=== PATIENT | male | born 1955 | race Caucasian/White ===

== ENCOUNTER 2016-08-04 08:01 | Inpatient (IN) ==
--- NOTE | 2016-08-01 21:45 | Discharge Summary ---
<Sofie Jeong - Last Filed: 08/01/16 21:42> Date of Encounter: 08/01/16 - Discharge Diagnosis (1) Arthritis of knee, left Priority: Primary Status: Acute (2) HTN (hypertension) Priority: Secondary Status: Chronic Qualifiers: Hypertension type: essential hypertension Qualified Code(s): I10 - Essential (primary) hypertension (3) Tobacco dependence Priority: Secondary Status: Chronic - Discharge Medications Home Medications: Diltiazem HCl [Diltiazem 24Hr Cd] 240 mg PO DAILY 04/22/16 [History] Meloxicam [Mobic] 7.5 mg PO DAILY 04/22/16 [History] Aspirin Enteric Coated [Aspirin EC] 325 mg PO DAILY #21 tablet. 08/01/16 [Rx] OxyCODONE Immed Rel [Roxicodone 5 MG] 5 - 10 mg PO Q6HR PRN #40 tablet 08/01/16 [Rx] Allergies/Adverse Reactions: Allergies Erythromycin Base [From Erythrocin] Allergy (Verified 04/22/16 09:51) See Comments lack of therapy Primary care physician: Kj Lindsey MD - Patient Status Disposition: Home, Self-Care Condition: Good - Discharge Instructions Follow Up With: Kj Lindsey MD [Primary Care Provider] - - Hospital Course Hospital course: Mr. Tolentino is a 60 year old male - Time Spent with Patient Total time spent providing and/or coordinating discharge services: <Zi Mann - Last Filed: 08/05/16 09:57> Date of Encounter: 08/05/16 Time of Encounter: 09:57 Labs on day of discharge: Labs from last 24 hours 08/05/16 08/05/16 08/04/16 04:15 04:15 12:45 Hgb 12.2 L D 14.2 D Hct 35.5 L 41.8 Sodium 135 L Potassium 4.3 Chloride 100 Carbon Dioxide 27 BUN 11 Creatinine 0.69 L Est GFR ( Amer) > 60 Est GFR (Non-Af Amer) > 60 BUN/Creatinine Ratio 16 Glucose 179 H Calculated Osmolality 284 Calcium 9.1 - Impressions ITS Impressions Knee X-Ray 08/04/16 00:01 IMPRESSION: 1. Left knee arthroplasty with no immediate complications. D/ / Perez Chiang MD / Perez Chiang MD Interpreting Provider: Perez Chiang MD Date of admission: 08/04/16 13:25 Primary care physician: Kj Lindsey MD Consults: 08/04/16 13:32 Consult to Occupational Therapy [CONS] Routine Comment: Evaluate, develop and implement POC Reason for Consult: post knee surgery Consult to Orthopedic Navigator [CONS] [CONS] Routine Consult to Physical Therapy [CONS] Routine Comment: Evaluate, develop and impliment POC Reason for Consult: post knee surgery Consult to Ultrasound Tester [CONS] Routine Reason for SW Consult: post op joint replacement RT Post Op Consult [CONS] Routine - Patient Status Functional capacity at discharge: uses cane/walker Overall status at discharge: patient is progressing back to baseline - Hospital Course Hospital course: Mr. Tolentino is a 60 year old male The patient had an uneventful postoperative course. They received antibiotics and physical therapy and were discharged in stable condition. There will follow -up in the office in 2 weeks. Aspirin DVT prophylaxis patient approved for discharge today - Time Spent with Patient Total time spent providing and/or coordinating discharge services:
[2016-08-04] MEDS ORDERED: Lidocaine -MPF 1% 2 ML VIAL ID ONE (08:19)
[2016-08-04] MEDS ORDERED: CeFAZolin Pre 2,000 MG/100 ML 2,000 MG/100 ML BAG IVPB ONE (08:19)
[2016-08-04] MEDS ORDERED: Albuterol 2.5 MG/3 ML NEBULIZER IH ONE (08:19)
[2016-08-04] MEDS ORDERED: Albuterol 2.5 MG/3 ML NEBULIZER ONE (08:25)
[2016-08-04] MEDS ORDERED: Ringers Solution, Lactated 1,000 ML IVC SCH (08:30)
--- NOTE | 2016-08-04 08:31 | Anesthesia Evaluation PreOp ---
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 all resolved) Other Medical History: Denies Any Significant HX Anesthesia History: No Prior Anesthetic Complications, Past Anesthesia (ear, ctr , trigger finger, r shoulder arth, l knee arth) Alcohol Use: occasionally Drug use: none Medications and Allergies Diltiazem HCl [Diltiazem 24Hr Cd] 240 mg PO DAILY 04/22/16 [History] Meloxicam [Mobic] 7.5 mg PO DAILY 04/22/16 [History] Aspirin Enteric Coated [Aspirin EC] 325 mg PO DAILY #21 tablet. 08/01/16 [Rx] OxyCODONE Immed Rel [Roxicodone 5 MG] 5 - 10 mg PO Q6HR PRN #40 tablet 08/01/16 [Rx] Allergies Erythromycin Base [From Erythrocin] Allergy (Verified 04/22/16 09:51) See Comments lack of therapy - Meds/Allergy Pre-op Review Medications Reviewed: Yes Allergies Reviewed: Yes Beta Blockers on Current Med List: No Anesthesia Results - Labs Laboratory Tests 07/29/16 07/29/16 07/29/16 11:45 11:50 11:50 Hgb 16.2 Hct 47.5 Plt Count 152 PT 9.6 INR 0.9 APTT 29.2 Sodium 137 Potassium 3.9 Creatinine 0.71 L - Imaging EKG: report reviewed (sr) Anesthesia Exam O2 Sat Height 1.7 m Height 1.7 m Weight 92.533 kg Weight 92.533 kg O2 Sat by Pulse Oximetry 90 Vital Signs Temp Pulse Resp BP Pulse Ox 98.4 F 79 18 156/78 90 08/04/16 08:21 08/04/16 08:21 08/04/16 08:21 08/04/16 08:21 08/04/16 08:21 Height: 1.7 Weight: 92 NPO (# of Hours): >8 - HEENT Pupil (Motor): Pupils equal, EOMI Mallampati: IV Teeth: Poor dentition Oral Opening: Greater than 3 - SENIOR SALES ASSISTANT LOC: Oriented SENIOR SALES ASSISTANT Motor: Normal RUE, Normal LUE, Normal RLE, Normal LLE, Normal Face SENIOR SALES ASSISTANT Sensory: Normal: RUE, LUE, RLE, LLE, Face - Cardiac Rhythm: Regular Murmur: None - Pulmonary Breath Sounds: bilateral Clear (wheeze bilat r>l) Anesthesia Assess/Plan ASA Score: 2 (known diff AW...awake look to FOI) Modified [place] Scale for Level of Consciousness: Cooperative, oriented, and tranquil Anesthetic Plan: General, Regional Monitoring Plan: Standard Monitors Recovery Plan: PACU
--- NOTE | 2016-08-04 08:41 | History & Physical Report ---
Date of Encounter: 08/04/16 Time of Encounter: 08:41 24 Hour HP Update - Instructions Instructions: If the History and Physical is less than 30 days old and was completed prior to A.M. admission and or procedure and has NOT been updated on calendar day of procedure please complete this update prior to performing procedure. - Update Patient reports changes in Medical Condition: No Changes in examination, assessment, or condition: No Changes in Medication: No Preop tests/diagnostics Reviewed: Yes Surgery Remains Indicated: Yes Consent for Planned Operative Procedure(s) Verified: Yes - Pre-Operative Checklist Preoperative Checklist Indicated: No Prophylactic Antibiotic Ordered: Yes Is VTE Prophylaxis Indicated?: Yes
[2016-08-04] MEDS ORDERED: CloNIDine Patch 0.1 MG PATCH (WEEKLY) TD SCH (08:45)
[2016-08-04] MEDS ORDERED: Lidocaine -MPF 4% 5 ML AMPUL ONE ×2 (08:50→10:17)
[2016-08-04] MEDS ORDERED: *HR* Midazolam HCl 5 MG/5 ML VIAL IVP ONE (09:08)
[2016-08-04] MEDS ORDERED: *HR* Propofol 200 MG/20 ML VIAL IVP ONE ×2 (09:10→10:52)
[2016-08-04] MEDS ORDERED: Lidocaine -MPF 2% 2 ML VIAL ONE ×2 (09:11→10:46)
[2016-08-04] MEDS ORDERED: *HR* Remifentanil 2 MG VIAL IVP ONE (09:40)
[2016-08-04] MEDS ORDERED: ROPIVACAINE HCL/PF 0.5% 30 ML VIAL ONE (10:16)
[2016-08-04] MEDS ORDERED: Ondansetron 4 MG/2 ML VIAL ONE (10:58)
[2016-08-04] MEDS ORDERED: Dexamethasone 4 MG/ML VIAL ONE (10:58)
[2016-08-04] MEDS ORDERED: *HR* HYDROmorphone 2 MG/ML SYRINGE ONE (11:00)
[2016-08-04] MEDS ORDERED: Ketorolac 30 MG/ML VIAL ONE (11:01)
[2016-08-04] MEDS ORDERED: Ondansetron 4 MG/2 ML VIAL IVP PRN ×2 (11:14→13:32)
[2016-08-04] MEDS ORDERED: Naloxone 0.4 MG/ML INJ IVP PRN ×2 (11:14→13:32)
--- NOTE | 2016-08-04 11:18 | Anesthesia Procedures ---
Date of Encounter: 08/04/16 Time of Encounter: 10:25 Procedures: Anesthesia - Nerve Block Procedure Date: 08/04/16 Time: 10:25 Allergies/Adv Reactions: erythromycin base Pre-op Diagnosis: left knee OA Surgical Procedure: left knee TKA Checklist: Correct Patient Identifier, Correct procedure, History checked Correct side: Left Blood Thinner: No Monitor Applied: EKG, BP, Pulse Oximetry Supplemental Oxygen via Nasal Cannula (L/min): 4 Sedation: Versed (mg): 5 Indication: Post Op Analgesia Pre-op Neuro Deficits: No Block Type: Femoral, Other (ipack) Catheter placed: No Sterile Technique: Yes Ultrasound used: Yes Anatomy identified: Yes Visual spread of Local: Yes Neuro Stimulation: Yes (femoral only) Nerve Stimulator Range: 0.2 - 0.4 mA Blood on Needle Aspiration: No Smooth Injection of Local: Yes Pain with Injection of Local: No Prep: Chlorhexadine Needle: 22 x 50 mm Stimuplex (femoral), 21 x 100 mm Stimuplex (echogenic ipack) Local: Ropivacaine (30mL 0.5% femoral), Other (30mL 0.25% bupivacaine + 10mg decadron (ipack), 10mg decadron femoral) Volume (cc): 65 Number of Attempts: 1 Complications: None/effective block Vitals: Vital Signs/O2 Sat/Glucose, Most Recent Temp Pulse Resp BP Pulse Ox 98.4 F 83 16 154/79 91 08/04/16 08:21 08/04/16 10:24 08/04/16 10:24 08/04/16 10:24 08/04/16 10:24
[2016-08-04] MEDS ORDERED: *HR* Midazolam HCl 2 MG/2 ML VIAL ONE (11:22)
--- NOTE | 2016-08-04 11:27 | Orthopedic Operative Note ---
Date of procedure: 08/04/16 Pre-op diagnosis: Left knee arthritis Post-op diagnosis: same Procedure: Procedure: Left Total knee replacement Estimated blood loss: 200 cc Hardware: Metal and polyethylene replacement. Arthrex Femur: 6 Tibia: Fixed PS insert: 10 Patella: 40 Exam Under anesthesia: Full flexion and extension no instability Procedural Notes: Grade 3 arthritic changes patellofemoral joint and the medial compartment. Operative procedure: The patient was brought to the operating room and placed on the operating room table. After general anesthesia was administered the operative knee was examined. Findings were noted in the exam under anesthesia. The operative extremity was prepped and draped in sterile surgical fashion. The patient received IV antibiotics prior to skin incision. A standard midline incision was made centered over the patella. The incision was made through the skin and subcutaneous tissue. A medial parapatellar tendon approach was performed. Care was taken to preserve tissue along the medial aspect of the patella. And to protect the patella tendon. The deep MCL was released off the medial tibia. The infra patella fat pad was excised. Knee was brought into flexion. Patient noted to have grade 3 arthritic changes medial compartment and the patellofemoral joint. The entry hole was made for the intramedullary femoral guide. The guide was seated in 6 degrees of valgus. Anterior cut was made followed by the distal cut. The ACL the PCL the medial and the lateral menisci were excised. The tibia was subluxed forward. The entry hole was made for the intramedullary tibial guide. Guide was seated to resect 2 mm off the more abnormal side. The knee was brought into flexion the distal femur was sized to a 6. The femoral guide was seated, the anterior cut was made followed by the posterior condylar cut, followed by the chamfer cuts. The finishing guide was seated the box cut was made and the lug holes were drilled. The tibia was sized to a 6, the tibial tray was seated and prepared with the large drill followed by the fin cutter. Trial reduction revealed full extension no varus valgus instability with the appropriate 10 PS Luz. The patella was everted and cut was made at the level of the insertion of the quadriceps and patella tendon. The patella was sized to a 40 the guide was seated and the lug holes are drilled. Trial reduction revealed excellent patella tracking. All trial components were removed all bony surfaces were irrigated. The tibia was cemented first followed by the femur. The 10 PS Luz was seated and the knee was brought into full extension. The patella was cemented and held in place with the patellar holding clamp. After the cement had hardened, the knee sat for 2 minutes with a Betadine saline solution. The knee was then irrigated out with 2 L of pulse irrigation. The extensor mechanism was closed with #2 FiberWire suture and #2 PDS suture. The subcutaneous tissue was then irrigated and closed deep with #1 PDS suture superficially with 0 PDS suture and skin was closed with skin linnea. The patient was then placed in a sterile dressing and a postoperative brace extubated and transferred to recovery room in stable condition. Anesthesia: GETChristi Surgeon: Zi Mann Condition: stable Disposition: PACU
[2016-08-04] MEDS: *HR* HYDROmorphone (PF) 1 MG/ML SYRINGE IVP PRN ×2 (12:10→12:23)
--- NOTE | 2016-08-04 12:46 | Anesthesia Evaluation Post Op ---
Date of Encounter: 08/04/16 Time of Encounter: 12:40 - Vital Signs Vital Signs: vss - Lungs Lungs: Clear Ascult./Percussion - Airway Airway: Non-obstructed - Cardiovascular Regular Rate, Baseline Rhythm - Mental Status Mental Status: Alert & Oriented, Answers Appropriately - Pain Pain Scale: 3 Pain Scale used: Numeric (1 - 10) - Nausea Vomiting Nausea Vomiting: Not Present - Hydration Hydration: Ice chips - Discharge PostOp Status: Transfer Patient to floor
[2016-08-04 12:57] LABS: Hematocrit 41.8 % (37.5-50.1)
[2016-08-04 13:11] LABS: Hemoglobin 14.2 g/dL (12.9-16.9)
[2016-08-04] MEDS ORDERED: Temazepam 15 MG CAPSULE PO PRN (13:32)
[2016-08-04] MEDS ORDERED: *HR* HYDROmorphone (PF) 1 MG/ML SYRINGE IVP PRN (13:32)
[2016-08-04] MEDS ORDERED: MOM Conc 10 ML UD.LIQ PO PRN (13:32)
[2016-08-04] MEDS ORDERED: Sennosides 8.6 MG TABLET PO PRN (13:32)
[2016-08-04] MEDS ORDERED: *HR* OxyCODONE Immed Rel 5 MG TABLET PO PRN (13:32)
[2016-08-04] MEDS: Ringers Solution, Lactated 1,000 ML IVC SCH (16:22)
[2016-08-04] MEDS: *HR* Enoxaparin 30 MG/0.3 ML SYRINGE SQ SCH (16:57)
[2016-08-04] MEDS: Diltiazem CD (24hr) 240 MG CAPSULE PO SCH (16:57)
[2016-08-04] MEDS: ceFAZolin 2,000 MG in D5% in Water 100 ML IVPB SCH (16:57)
[2016-08-04] MEDS ORDERED: *HR* Enoxaparin 30 MG/0.3 ML SYRINGE SQ SCH (18:00)
[2016-08-05] MEDS: ceFAZolin 2,000 MG in D5% in Water 100 ML IVPB SCH (00:44)
[2016-08-05] MEDS: *HR* OxyCODONE Immed Rel 5 MG TABLET PO PRN ×2 (05:30→10:58)
[2016-08-05] MEDS: *HR* Enoxaparin 30 MG/0.3 ML SYRINGE SQ SCH (05:30)
[2016-08-05 05:37] LABS: Hematocrit 35.5 % (37.5-50.1)
[2016-08-05 05:38] LABS: Hemoglobin 12.2 g/dL (12.9-16.9)
[2016-08-05 05:57] LABS: BUN/Creatinine Ratio 16 (6-26); Blood Urea Nitrogen 11 mg/dL (8-26); Calcium 9.1 mg/dL (8.6-10.8); Carbon Dioxide 27 mEq/L (19-29); Chloride 100 mEq/L (98-109); Glucose 179 mg/dL (70-99); Osmolality,Calculated 284 (280-300); Potassium 4.3 mEq/L (3.5-4.5); Sodium 135 mEq/L (136-145); eGFR For African Americans > 60 (> 60); eGFR For Non-African Americans > 60 (> 60)
[2016-08-05] MEDS: Ringers Solution, Lactated 1,000 ML IVC SCH (06:31)
--- NOTE | 2016-08-05 08:08 | Orthopedics Progress Note ---
Date of Encounter: 08/05/16 Time of Encounter: 08:08 Subjective Interval history: Patient was seen this morning doing well without complaints. Afebrile vital signs stable. Operative extremity: Neurovascularly intact Dressing clean dry and intact Calves nontender Assessment and plan: Continue with postoperative care Hematocrit 35 Objective Vital signs: Vital Signs Temp Pulse Resp BP Pulse Ox 08/05/16 06:44 98.7 F 78 16 153/77 96 08/05/16 00:13 97.7 F 72 16 137/81 94 08/04/16 20:13 98.2 F 73 16 132/72 94 08/04/16 17:47 80 16 129/79 93 08/04/16 16:24 80 16 129/79 93 08/04/16 15:35 73 16 149/95 93 08/04/16 14:28 97.6 F 67 16 152/79 94 08/04/16 14:03 66 16 152/83 91 08/04/16 13:30 97.9 F 69 16 159/94 91 08/04/16 13:00 97.2 F L 72 16 157/90 94 08/04/16 12:50 72 16 154/84 94 08/04/16 12:40 67 18 155/95 92 08/04/16 12:30 97.1 F L 70 18 151/90 94 08/04/16 12:20 69 16 146/85 92 08/04/16 12:10 70 18 152/87 93 08/04/16 12:00 97.0 F L 80 16 150/87 93 08/04/16 10:24 83 16 154/79 91 08/04/16 10:07 75 16 148/81 95 08/04/16 09:50 75 18 147/82 94 08/04/16 08:43 18 156/78 90 08/04/16 08:21 98.4 F 79 18 156/78 90 Intake and Output 08/04/16 08/05/16 08/05/16 23:59 07:59 15:59 Intake Total 1040 / 1040 1000 / 1000 Output Total 1000 / 1000 Balance 1040 / 1040 0 / 0 Intake: IV Fluids 100 / 100 1000 / 1000 Lactated Ringers 1,000 ML 1000 / 1000 @ 75 mls/hr IVC .[id number] [facility] Rx#:[id number] Ancef 2,000 MG In 100 / 100 Dextrose 5% 100 ML @ 200 mls/hr IVPB Q8HR [facility] Rx#: [id number] Oral 940 / 940 Output: Urine 1000 / 1000 Other: Meal Clear liquid Weight 99.5 kg Patient Weight 08/05/16 23:59 Weight 99.5 kg - Labs CBC & BMP: 08/05/16 04:15 08/05/16 04:15 Labs: Abnormal lab results Hgb 12.2 g/dL (12.9-16.9) L D 08/05/16 04:15 Hct 35.5 % (37.5-50.1) L 08/05/16 04:15 Sodium 135 mEq/L (136-145) L 08/05/16 04:15 Creatinine 0.69 mg/dL (0.72-1.25) L 08/05/16 04:15 Glucose 179 mg/dL (70-99) H 08/05/16 04:15 - VTE Documentation of Mechanical Device: Venous foot pump, device Consult Discharge Plan - Plan Referrals: Kj Lindsey MD [Primary Care Provider] -
[2016-08-05] MEDS: Diltiazem CD (24hr) 240 MG CAPSULE PO SCH (09:19)
[2016-08-05 10:41] VITALS: BP 153/90
== END 2016-08-05 12:30 | disposition home or self-care (01) | DRG 470 ==
LOC: SAMDAY 08:01 → 3NENU 13:25
PROVIDERS: ADMIT Orthopaedic Surgery; ATTEND Orthopaedic Surgery

== ENCOUNTER 2018-11-22 16:02 | Inpatient (IN) ==
[2018-11-22] MEDS ORDERED: Isovue-370 500 ML BOTTLE IVP ONE (16:25)
[2018-11-22 17:31] LABS: Basophils % 0.2 %; Eosinophils % 0.1 %; Hematocrit 39.2 % (37.5-50.1); Hemoglobin 14.1 g/dL (12.9-16.9); Immature Granulocytes % 0.5 % (0-4); Lymphocytes # 1.7 K/mcL (0.6-4.6); Mean Corpuscular Hemoglobin 32.3 pg (28.0-33.3); Mean Corpuscular Volume 89.9 fL (83.0-100.0); Mean Platelet Volume 9.2 fL (9.4-12.4); Monocytes # 1.1 K/mcL (0.0-1.3); Monocytes % 10.1 %; Neutrophils # 7.7 K/mcL (1.6-8.9); Platelet Count 151 K/mcL (140-400); Red Blood Count 4.36 M/mcL (4.19-5.50); Red Cell Distribution Width 13.1 % (11.5-14.5); Segmented Neutrophils % 73.1 %; White Blood Count 10.5 K/mcL (4.3-11.1)
[2018-11-22 17:47] LABS: Calcium 8.3 mg/dL (8.6-10.3); Potassium 4.7 mEq/L (3.5-5.1)
[2018-11-22] MEDS ORDERED: 0.9 % Sodium Chloride 500 ML IVC ONE ×2 (18:54→23:25)
[2018-11-22] MEDS ORDERED: 0.9 % Sodium Chloride 1,000 ML ONE (19:43)
[2018-11-22 20:05] LABS: Bilirubin,Urine Negative (Negative); Blood,Urine Trace (Negative); Clarity,Urine Clear (Clear); Color,Urine Yellow (Yellow); Glucose,Urine (UA) Normal (Normal); Ketones,Urine Negative (Negative); Leukocyte Esterase,Urine Negative (Negative); Nitrite,Urine Negative (Negative); Protein,Urine Negative (Neg-Trace); Specific Gravity,Urine 1.011 (1.010-1.025); Urobilinogen,Urine Normal (Normal)
[2018-11-22 20:07] LABS: Bacteria,Urine None Seen per hpf (None-Few); Hyaline Casts,Urine None Seen per lpf (None-Few); Squamous Epithelial Cell,Urine Many per lpf (None-Few); WBC,Urine 0-3 per hpf (0-3)
[2018-11-22 20:14] LABS: Sodium, Urine 21.5 mEq/L
[2018-11-22] MEDS ORDERED: Naloxone 0.4 MG/ML INJ IVP PRN (20:28)
[2018-11-22 21:36] LABS: Calcium 8.2 mg/dL (8.6-10.3); Potassium 4.8 mEq/L (3.5-5.1)
[2018-11-22] MEDS ORDERED: methylPREDNISolone 4 MG TABLET PO ONE (23:45)
[2018-11-23 01:54] LABS: Hematocrit 37.7 % (37.5-50.1); Hemoglobin 13.6 g/dL (12.9-16.9); Mean Corpuscular HGB Conc 36.1 g/dL (31.6-35.5); Mean Corpuscular Hemoglobin 32.3 pg (28.0-33.3); Mean Corpuscular Volume 89.5 fL (83.0-100.0); Mean Platelet Volume 9.3 fL (9.4-12.4); Platelet Count 132 K/mcL (140-400); Red Blood Count 4.21 M/mcL (4.19-5.50); White Blood Count 9.5 K/mcL (4.3-11.1)
[2018-11-23 02:12] LABS: Calcium 8.1 mg/dL (8.6-10.3); Potassium 4.4 mEq/L (3.5-5.1)
[2018-11-23 05:20] LABS: Hematocrit 39.2 % (37.5-50.1); Mean Corpuscular HGB Conc 35.7 g/dL (31.6-35.5); Mean Corpuscular Hemoglobin 31.4 pg (28.0-33.3); Mean Corpuscular Volume 87.9 fL (83.0-100.0); Platelet Count 149 K/mcL (140-400); Red Blood Count 4.46 M/mcL (4.19-5.50); Red Cell Distribution Width 13.1 % (11.5-14.5)
[2018-11-23] MEDS: *HR* Heparin 5,000 UNIT/ML VIAL SQ SCH ×2 (05:26→16:19)
[2018-11-23 05:40] LABS: BUN/Creatinine Ratio 43 (6-26); Blood Urea Nitrogen 62 mg/dL (8-23); Calcium 8.5 mg/dL (8.6-10.3); Carbon Dioxide 20 mEq/L (23-29); Chloride 94 mEq/L (98-107); Glucose 113 mg/dL (70-105); Osmolality,Calculated 272 (280-300); Potassium 4.7 mEq/L (3.5-5.1); Sodium 122 mEq/L (136-145); eGFR For African Americans > 60 (> 60); eGFR For Non-African Americans 50 (> 60)
[2018-11-23] MEDS ORDERED: 0.9 % Sodium Chloride 1,000 ML IVC SCH (07:15)
[2018-11-23] MEDS ORDERED: Diltiazem CD (24hr) 240 MG CAPSULE PO SCH (09:00)
[2018-11-23] MEDS: methylPREDNISolone 4 MG TABLET PO SCH ×3 (09:33→21:02)
[2018-11-23] MEDS: Aspirin Enteric Coated 81 MG Tablet PO SCH (09:33)
[2018-11-23 09:45] LABS: BUN/Creatinine Ratio 47 (6-26); Blood Urea Nitrogen 55 mg/dL (8-23); Calcium 8.4 mg/dL (8.6-10.3); Carbon Dioxide 23 mEq/L (23-29); Chloride 96 mEq/L (98-107); Glucose 101 mg/dL (70-105); Osmolality,Calculated 275 (280-300); Potassium 4.7 mEq/L (3.5-5.1); Sodium 125 mEq/L (136-145); eGFR For African Americans > 60 (> 60); eGFR For Non-African Americans > 60 (> 60)
[2018-11-23] MEDS ORDERED: DiphenhydraMINE CREAM 28.4 GM TUBE TP PRN (10:18)
[2018-11-23] MEDS: 0.9 % Sodium Chloride 1,000 ML IVC SCH ×2 (11:55→23:51)
[2018-11-23 14:48] LABS: BUN/Creatinine Ratio 49 (6-26); Blood Urea Nitrogen 49 mg/dL (8-23); Calcium 8.8 mg/dL (8.6-10.3); Carbon Dioxide 22 mEq/L (23-29); Chloride 96 mEq/L (98-107); Glucose 107 mg/dL (70-105); Osmolality,Calculated 273 (280-300); Potassium 4.6 mEq/L (3.5-5.1); Sodium 125 mEq/L (136-145); eGFR For African Americans > 60 (> 60); eGFR For Non-African Americans > 60 (> 60)
[2018-11-23 17:39] LABS: BUN/Creatinine Ratio 52 (6-26); Blood Urea Nitrogen 48 mg/dL (8-23); Calcium 8.4 mg/dL (8.6-10.3); Carbon Dioxide 22 mEq/L (23-29); Chloride 98 mEq/L (98-107); Glucose 139 mg/dL (70-105); Osmolality,Calculated 277 (280-300); Potassium 4.8 mEq/L (3.5-5.1); Sodium 126 mEq/L (136-145); eGFR For African Americans > 60 (> 60); eGFR For Non-African Americans > 60 (> 60)
[2018-11-23] MEDS ORDERED: Melatonin 3 MG TABLET PO ONE (21:38)
[2018-11-24] MEDS: *HR* Heparin 5,000 UNIT/ML VIAL SQ SCH (05:22)
[2018-11-24 05:32] LABS: Basophils % 0.1 %; Eosinophils % 0.3 %; Hemoglobin 13.6 g/dL (12.9-16.9); Immature Granulocytes % 0.3 % (0-4); Lymphocytes # 1.9 K/mcL (0.6-4.6); Lymphocytes % 26.1 %; Mean Corpuscular Hemoglobin 31.6 pg (28.0-33.3); Mean Corpuscular Volume 92.8 fL (83.0-100.0); Mean Platelet Volume 9.1 fL (9.4-12.4); Monocytes # 0.6 K/mcL (0.0-1.3); Monocytes % 7.8 %; Neutrophils # 4.8 K/mcL (1.6-8.9); Platelet Count 137 K/mcL (140-400); Red Blood Count 4.31 M/mcL (4.19-5.50); Red Cell Distribution Width 13.2 % (11.5-14.5); Segmented Neutrophils % 65.4 %; White Blood Count 7.4 K/mcL (4.3-11.1)
[2018-11-24 06:10] LABS: Thyroid Stimulating Hormone 0.429 mcIU/mL (0.340-5.600)
[2018-11-24 06:16] LABS: BUN/Creatinine Ratio 43 (6-26); Blood Urea Nitrogen 29 mg/dL (8-23); Calcium 8.5 mg/dL (8.6-10.3); Carbon Dioxide 22 mEq/L (23-29); Chloride 103 mEq/L (98-107); Glucose 132 mg/dL (70-105); Osmolality,Calculated 282 (280-300); Potassium 4.7 mEq/L (3.5-5.1); Sodium 132 mEq/L (136-145); eGFR For African Americans > 60 (> 60); eGFR For Non-African Americans > 60 (> 60)
[2018-11-24 07:29] VITALS: BP 117/71
[2018-11-24] MEDS ORDERED: methylPREDNISolone 4 MG TABLET PO SCH (07:30)
[2018-11-24] MEDS: Aspirin Enteric Coated 81 MG Tablet PO SCH (08:50)
[2018-11-24] MEDS ORDERED: Psyllium 1 PACKET POWD.PACK PO SCH (09:00)
[2018-11-25] MEDS ORDERED: methylPREDNISolone 4 MG TABLET PO SCH (07:30)
== END 2018-11-24 12:53 | disposition home or self-care (01) | DRG 683 ==
LOC: EMEROOARM 16:02 → 2ANU 16:02 → SUATTDRO 20:50 → 2ANU 22:04
PROVIDERS: ADMIT Family Medicine; ATTEND Internal Medicine

== ENCOUNTER 2020-08-18 13:18 | Observation (INO) ==
[2020-08-18] MEDS ORDERED: 0.9 % Sodium Chloride 1,000 ML IVC ONE (14:10)
[2020-08-18 14:32] LABS: Basophils % 0.4 %; Eosinophils # 0.1 K/mcL (0.0-0.6); Eosinophils % 1.5 %; Hematocrit 46.2 % (37.5-50.1); Hemoglobin 15.2 g/dL (12.9-16.9); Immature Granulocytes % 0.3 % (0-4); Lymphocytes # 2.4 K/mcL (0.6-4.6); Mean Corpuscular HGB Conc 32.9 g/dL (31.6-35.5); Mean Corpuscular Hemoglobin 31.1 pg (28.0-33.3); Mean Corpuscular Volume 94.5 fL (83.0-100.0); Monocytes # 0.9 K/mcL (0.0-1.3); Neutrophils # 5.5 K/mcL (1.6-8.9); Platelet Count 167 K/mcL (140-400); Red Blood Count 4.89 M/mcL (4.19-5.50); Red Cell Distribution Width 13.2 % (11.5-14.5); Segmented Neutrophils % 60.8 %
[2020-08-18 14:44] LABS: Alanine Aminotransferase 14 Units/L (7-52); Albumin 4.4 g/dL (3.5-5.7); Albumin/Globulin Ratio 1.4 (1.1-2.2); Alkaline Phosphatase 101 Units/L (34-104); Aspartate Amino Transferase 13 Units/L (13-39); BUN/Creatinine Ratio 24 (6-26); Bilirubin,Direct 0.1 mg/dL (0.0-0.2); Bilirubin,Indirect 0.4 mg/dL (0.0-1.0); Bilirubin,Total 0.5 mg/dL (0.3-1.0); Blood Urea Nitrogen 16 mg/dL (8-23); Calcium 9.5 mg/dL (8.6-10.3); Carbon Dioxide 27 mEq/L (23-29); Chloride 105 mEq/L (98-107); Globulin 3.2 g/dL (2.4-3.5); Glucose 111 mg/dL (70-105); Lipase 26 Units/L (11-82); Osmolality,Calculated 296 (280-300); Potassium 4.2 mEq/L (3.5-5.1); Sodium 142 mEq/L (136-145); Total Protein 7.6 g/dL (6.4-8.9); Troponin I < 0.03 ng/mL (< 0.04); eGFR For African Americans > 60 (> 60); eGFR For Non-African Americans > 60 (> 60)
[2020-08-18] MEDS ORDERED: Doxycycline 100 MG CAPSULE PO ONE (14:58)
[2020-08-18] MEDS ORDERED: Isovue-370 500 ML BOTTLE IVP ONE (16:09)
[2020-08-18] MEDS ORDERED: Naloxone 0.4 MG/ML INJ IVP PRN (16:12)
[2020-08-18] MEDS ORDERED: Ondansetron 4 MG/2 ML VIAL IVP PRN (16:12)
[2020-08-18] MEDS ORDERED: Melatonin 3 MG TABLET PO PRN (16:12)
[2020-08-18] MEDS ORDERED: Ipratropium/Albuterol Neb 3 ML IH PRN (16:35)
[2020-08-18] MEDS ORDERED: *HR* Heparin 5,000 UNIT/ML VIAL IVP PRN ×2 (16:38)
[2020-08-18] MEDS ORDERED: Perflutren Lipid Microsphere 1.3 ML in 0.9 % Sodium Chloride 8.7 ML IVP PRN (16:40)
[2020-08-18 17:32] LABS: Heparin anti-factor XA UFH 0.21 IU/mL (0.30-0.70)
[2020-08-18 17:33] LABS: Prothrombin Time 11.7 Seconds (9.4-12.1)
[2020-08-18] MEDS ORDERED: *HR* Enoxaparin 120 MG/0.8 ML SYRINGE SQ SCH (18:00)
[2020-08-18 18:08] LABS: Adenovirus Not Detected (Not Detect); Bordetella Pertussis Not Detected (Not Detect); Chlamydophila pneumoniae Not Detected (Not Detect); Coronavirus 229E Not Detected (Not Detect); Coronavirus HKU1 Not Detected (Not Detect); Coronavirus NL63 Not Detected (Not Detect); Coronavirus OC43 Not Detected (Not Detect); Human Metapneumovirus Not Detected (Not Detect); Human Rhinovirus/Enterovirus Not Detected (Not Detect); Influenza A Subtype 2009 H1 Not Detected (Not Detect); Influenza B Not Detected (Not Detect); Mycoplasma pneumoniae Not Detected (Not Detect); Parainfluenza Virus 1 Not Detected (Not Detect); Parainfluenza Virus 2 Not Detected (Not Detect); Parainfluenza Virus 3 Not Detected (Not Detect); Parainfluenza Virus 4 Not Detected (Not Detect); Respiratory Syncytial Virus Not Detected (Not Detect); SARS-CoV-2 Not Detected (Not Detect)
[2020-08-18] MEDS ORDERED: Gabapentin 300 MG CAPSULE PO SCH (18:30)
[2020-08-18] MEDS: MethylPREDNISolone 40 MG/ML VIAL IVP SCH (18:37)
[2020-08-18] MEDS: Metoprolol XL (24 HR) Succ 25 MG TAB.ER.24H PO SCH (18:38)
[2020-08-18] MEDS: Nicotine 21 MG PATCH.TD24 TD SCH (18:40)
[2020-08-18] MEDS: Nicotine 2 MG GUM BC SCH ×3 (18:40→22:07)
[2020-08-18] MEDS: Budesonide/Formoterol 160/4.5 1 PUFF INH IH SCH (21:23)
[2020-08-18] MEDS: Chlorhexidine Rinse 15 ML MOUTHWASH MM SCH (21:53)
[2020-08-18] MEDS ORDERED: Ipratropium/Albuterol Neb 3 ML IH SCH (22:00)
[2020-08-18] MEDS: Levalbuterol Neb 1.25 MG/3 ML IH SCH (23:28)
[2020-08-19 00:56] LABS: Bilirubin,Urine Negative (Negative); Blood,Urine Negative (Negative); Clarity,Urine Clear (Clear); Color,Urine Light-Yellow (Yellow); Glucose,Urine (UA) Normal (Normal); Ketones,Urine Negative (Negative); Leukocyte Esterase,Urine Negative (Negative); Nitrite,Urine Negative (Negative); PH,Urine 6.5 pH Units (5.0-8.0); Protein,Urine Negative (Neg-Trace); Specific Gravity,Urine > 1.030 (1.010-1.025); Urobilinogen,Urine Normal (Normal)
[2020-08-19] MEDS: Acetaminophen 325 MG TABLET PO PRN ×3 (02:39→20:59)
[2020-08-19] MEDS: Levalbuterol Neb 1.25 MG/3 ML IH SCH ×4 (03:45→22:15)
[2020-08-19] MEDS ORDERED: *HR* Heparin 5,000 UNIT/ML VIAL IVP PRN ×2 (04:00)
[2020-08-19] MEDS: Heparin 25,000UNIT/250ML 1/2NS 25,000 UNIT/250 ML IV.SOLN IVC SCH ×2 (04:07→21:22)
[2020-08-19] MEDS: Nicotine 2 MG GUM BC SCH ×4 (05:28→22:27)
[2020-08-19] MEDS: MethylPREDNISolone 40 MG/ML VIAL IVP SCH ×2 (05:28→18:19)
[2020-08-19] MEDS: Gabapentin 400 MG CAPSULE PO SCH ×3 (05:28→22:27)
[2020-08-19 05:47] LABS: Basophils % 0.2 %; Hemoglobin 15.4 g/dL (12.9-16.9); Immature Granulocytes % 0.3 % (0-4); Lymphocytes # 1.1 K/mcL (0.6-4.6); Lymphocytes % 17.4 %; Mean Corpuscular HGB Conc 33.5 g/dL (31.6-35.5); Mean Corpuscular Hemoglobin 31.4 pg (28.0-33.3); Mean Corpuscular Volume 93.9 fL (83.0-100.0); Mean Platelet Volume 10.3 fL (9.4-12.4); Monocytes # 0.1 K/mcL (0.0-1.3); Monocytes % 1.4 %; Neutrophils # 5.3 K/mcL (1.6-8.9); Platelet Count 162 K/mcL (140-400); Segmented Neutrophils % 80.7 %; White Blood Count 6.5 K/mcL (4.3-11.1)
[2020-08-19 05:51] LABS: INR 1.1; Prothrombin Time 13.2 Seconds (9.4-12.1)
[2020-08-19 06:06] LABS: Alanine Aminotransferase 14 Units/L (7-52); Albumin 4.5 g/dL (3.5-5.7); Albumin/Globulin Ratio 1.4 (1.1-2.2); Alkaline Phosphatase 103 Units/L (34-104); Aspartate Amino Transferase 14 Units/L (13-39); BUN/Creatinine Ratio 22 (6-26); Bilirubin,Total 0.5 mg/dL (0.3-1.0); Blood Urea Nitrogen 18 mg/dL (8-23); Calcium 9.4 mg/dL (8.6-10.3); Carbon Dioxide 25 mEq/L (23-29); Chloride 103 mEq/L (98-107); Chol/HDL Ratio 3.2 (0-4.9); Cholesterol 161 mg/dL (< 200); Globulin 3.3 g/dL (2.4-3.5); Glucose 146 mg/dL (70-105); HDL Cholesterol 50 mg/dL (40-59); LDL Cholesterol,Calculated 102 mg/dL (< 100); Magnesium 1.9 mg/dL (1.6-2.6); Osmolality,Calculated 287 (280-300); Phosphorous 2.9 mg/dL (2.7-4.5); Potassium 4.2 mEq/L (3.5-5.1); Sodium 136 mEq/L (136-145); Total Protein 7.8 g/dL (6.4-8.9); Triglycerides 43 mg/dL (< 150); eGFR For African Americans > 60 (> 60); eGFR For Non-African Americans > 60 (> 60)
[2020-08-19 07:11] LABS: Estimated Average Glucose 137 mg/dl; Hemoglobin A1C 6.4 %
[2020-08-19] MEDS: Chlorhexidine Rinse 15 ML MOUTHWASH MM SCH ×2 (07:40→21:00)
[2020-08-19] MEDS: Aspirin Enteric Coated 81 MG Tablet PO SCH (07:40)
[2020-08-19] MEDS: Nicotine 21 MG PATCH.TD24 TD SCH (07:41)
[2020-08-19] MEDS: DilTIAZem CD (24hr) 240 MG CAP.ER.24H PO SCH (07:41)
[2020-08-19] MEDS: Metoprolol XL (24 HR) Succ 25 MG TAB.ER.24H PO SCH (07:41)
[2020-08-19] MEDS ORDERED: lisinopriL 20 MG TABLET PO SCH (09:00)
[2020-08-19] MEDS ORDERED: Azithromycin 250 MG TABLET PO SCH (09:00)
[2020-08-19] MEDS: Budesonide/Formoterol 160/4.5 1 PUFF INH IH SCH ×2 (09:49→22:15)
[2020-08-19] MEDS ORDERED: Metoprolol XL (24 HR) Succ 25 MG TAB.ER.24H PO ONE (10:45)
[2020-08-19] MEDS ORDERED: traZODone 50 MG TABLET PO PRN (11:29)
[2020-08-19 11:39] LABS: Triiodothyronine (T3) Total 0.71 ng/mL (0.87-1.78)
[2020-08-19] MEDS ORDERED: Ipratropium 1 PUFF INHALER IH SCH (16:00)
[2020-08-19] MEDS: Ipratropium Neb 0.5 MG NEBULIZER IH SCH ×2 (16:02→22:16)
[2020-08-19] MEDS ORDERED: DilTIAZem CD (24hr) 120 MG CAP.ER.24H PO ONE (18:49)
[2020-08-19] MEDS: Apixaban 5 MG TABLET PO SCH (21:00)
[2020-08-20 01:53] LABS: Hematocrit 41.6 % (37.5-50.1); Hemoglobin 13.9 g/dL (12.9-16.9); Mean Corpuscular HGB Conc 33.4 g/dL (31.6-35.5); Mean Corpuscular Hemoglobin 31.4 pg (28.0-33.3); Mean Corpuscular Volume 94.1 fL (83.0-100.0); Mean Platelet Volume 10.4 fL (9.4-12.4); Platelet Count 161 K/mcL (140-400); Red Blood Count 4.42 M/mcL (4.19-5.50); Red Cell Distribution Width 13.2 % (11.5-14.5)
[2020-08-20 01:59] LABS: White Blood Count 10.5 K/mcL (4.3-11.1)
[2020-08-20 02:12] LABS: BUN/Creatinine Ratio 25 (6-26); Blood Urea Nitrogen 17 mg/dL (8-23); Calcium 9.3 mg/dL (8.6-10.3); Carbon Dioxide 23 mEq/L (23-29); Chloride 100 mEq/L (98-107); Glucose 171 mg/dL (70-105); Magnesium 2.1 mg/dL (1.6-2.6); Osmolality,Calculated 296 (280-300); Phosphorous 3.6 mg/dL (2.7-4.5); Potassium 4.1 mEq/L (3.5-5.1); Sodium 140 mEq/L (136-145); eGFR For African Americans > 60 (> 60); eGFR For Non-African Americans > 60 (> 60)
[2020-08-20] MEDS ORDERED: Benzonatate 100 MG CAPSULE PO PRN (02:43)
[2020-08-20] MEDS: Levalbuterol Neb 1.25 MG/3 ML IH SCH ×3 (03:47→15:32)
[2020-08-20] MEDS: Ipratropium Neb 0.5 MG NEBULIZER IH SCH ×3 (03:47→15:32)
[2020-08-20] MEDS: Gabapentin 400 MG CAPSULE PO SCH ×2 (05:33→15:26)
[2020-08-20] MEDS: Nicotine 2 MG GUM BC SCH ×3 (05:34→15:26)
[2020-08-20] MEDS: MethylPREDNISolone 40 MG/ML VIAL IVP SCH (05:34)
[2020-08-20] MEDS ORDERED: lisinopriL 20 MG TABLET PO SCH (09:00)
[2020-08-20] MEDS ORDERED: Metoprolol XL (24 HR) Succ 25 MG TAB.ER.24H PO SCH (09:00)
[2020-08-20] MEDS: Budesonide/Formoterol 160/4.5 1 PUFF INH IH SCH (09:24)
[2020-08-20] MEDS: Nicotine 21 MG PATCH.TD24 TD SCH (09:54)
[2020-08-20] MEDS: Aspirin Enteric Coated 81 MG Tablet PO SCH (09:54)
[2020-08-20] MEDS: Chlorhexidine Rinse 15 ML MOUTHWASH MM SCH (09:54)
[2020-08-20] MEDS: Apixaban 5 MG TABLET PO SCH (09:54)
[2020-08-20] MEDS: DilTIAZem CD (24hr) 240 MG CAP.ER.24H PO SCH (09:54)
[2020-08-20 15:19] VITALS: BP 101/69
[2020-08-21] MEDS ORDERED: DilTIAZem CD (24hr) 180 MG CAP.ER.24H PO SCH (09:00)
== END 2020-08-20 16:45 | disposition home or self-care (01) ==
LOC: SUATTDRO → CDU 13:18 → EMEROOARM 13:18 → SUATTDRO 16:39 → CDU 16:58
PROVIDERS: ADMIT Internal Medicine; ATTEND Student in an Organized Health Care Education/Training Program